=== PATIENT | female | born 1995 | race Caucasian/White ===

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

== ENCOUNTER 2017-05-31 09:21 | Emergency (ER) | payer BC ==
[2017-05-31 10:09] VITALS: BP 127/75
--- NOTE | 2017-05-31 10:32 | UC ---
Skin Complaint HPI - HPI Summary HPI Summary: boil left thigh x 3 days + redness, swollen, tender, no discharge hx of MRSA no fever, no chills - History of Current Complaint Chief Complaint: UCSkin Time Seen by Provider: 05/31/17 10:25 Stated Complaint: YAMILET KENNY NDS REFILL (NOT SEEN HERE) Hx Obtained From: Patient Hx Last Menstrual Period: 09/10/16 Onset/Duration: Gradual Onset, Lasting Days - 3, Still Present Timing: Constant Onset Severity: Moderate Current Severity: Moderate Pain Intensity: 2 Location: Other - left thigh Character: Swelling, Pain, Redness, Raised, Painful Aggravating Factor(s): Touch Alleviating Factor(s): Nothing Associated Signs & Symptoms: Positive: Tenderness. Negative: Nausea, Vomiting, Numbness, Thirst, Diaphoresis, Weakness, Pallor, Shivering - Allergy/Home Medications Allergies/Adverse Reactions: Allergies Allergy/AdvReac Type Severity Reaction Status Date / Time MS Bacitracin Allergy Intermediate Unknown Verified 05/31/17 10:07 [From Neosporin] Reaction Details MS Neomycin [From Neosporin] Allergy Intermediate Unknown Verified 05/31/17 10: 07 Reaction Details MS Polymyxin B Allergy Intermediate Unknown Verified 05/31/17 10:07 [From Neosporin] Reaction Details Review of Systems Constitutional: Negative Eyes: Negative ENT: Negative Respiratory: Negative Cardiovascular: Negative Is Patient Immunocompromised?: No All Other Systems Reviewed And Are Negative: Yes PMH/Surg Hx/FS Hx/Imm Hx - Additional Past Medical History Additional PMH: hx of MRSA - Surgical History Surgical History: None - Family History Known Family History: Positive: None Negative: Diabetes - Social History Alcohol Use: Occasionally Substance Use Type: None Smoking Status (MU): Never Smoked Tobacco - Immunization History Vaccination Up to Date: Yes Physical Exam Triage Information Reviewed: Yes Appearance: Well-Appearing, No Pain Distress, Well-Nourished Vital Signs: Initial Vital Signs Temp 98.2 F 05/31/17 10:03 Pulse 83 05/31/17 10:03 Resp 14 05/31/17 10:03 BP 127/75 05/31/17 10:03 Pulse Ox 100 05/31/17 10:03 Vital Signs Reviewed: Yes Eye Exam: Normal Eyes: Positive: Conjunctiva Clear ENT: Positive: Normal ENT inspection, Hearing grossly normal, Pharynx normal Neck: Positive: Supple, Nontender, No Lymphadenopathy Respiratory: Positive: Chest non-tender, Lungs clear, Normal breath sounds Cardiovascular: Positive: RRR, No Murmur, Pulses Normal Skin: Positive: Other - abscess left upper thigh , + erythema, tenderness, no dicharge Course/Dx - Diagnoses Provider Diagnoses: abscess right thigh Discharge - Discharge Plan Condition: Stable Disposition: HOME Prescriptions: Sulfamethox/Trimethoprim DS* [Bactrim DS 800/160 TAB*] 1 tab PO BID #20 tab Patient Education Materials: Abscess (ED) Referrals: Neftali HUBBARD,Wilber Cifuentes [Primary Care Provider] - 7 Days
== END 2017-05-31 10:37 | disposition home or self-care (01) ==
LOC: UCCORT 09:21
DX: L02.415 Cutaneous abscess of right lower limb (principal); Z86.14 Personal history of Methicillin resistant Staphylococcus aureus infection
CPT/HCPCS: 99212; G0463

== ENCOUNTER 2017-07-13 12:10 | Emergency (ER) | payer BC ==
[2017-07-13 12:36] VITALS: BP 144/79
--- NOTE | 2017-07-13 13:12 | UC ---
Skin Complaint HPI - HPI Summary HPI Summary: states that she saw a lesion on left chin about 3 days ago and popped it. It became painful and indurated. 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 Denies fever, discharge from skin lesion, neck or mouth pain - History of Current Complaint Chief Complaint: UCSkin Time Seen by Provider: 07/13/17 13:06 Stated Complaint: SWOLLEN AREA ON CHIN Hx Obtained From: Patient, Family/Bag Shaker Hx Last Menstrual Period: now ?: No Onset/Duration: Sudden Onset, Lasting Days Skin Exposure Onset/Duration: Days Ago Timing: Constant Onset Severity: Mild Current Severity: Moderate Pain Intensity: 4 Aggravating Factor(s): Touch Alleviating Factor(s): Nothing Related History: Trauma - Allergy/Home Medications Allergies/Adverse Reactions: Allergies Allergy/AdvReac Type Severity Reaction Status Date / Time bacitracin Allergy Unknown Verified 07/13/17 12:36 [From Neosporin Reaction ([id number])] Details neomycin Allergy Unknown Verified 07/13/17 12:36 [From Neosporin Reaction ([id number])] Details polymyxin B Allergy Unknown Verified 07/13/17 12:36 [From Neosporin Reaction ([id number])] Details Review of Systems Constitutional: Negative Skin: Rash All Other Systems Reviewed And Are Negative: Yes PMH/Surg Hx/FS Hx/Imm Hx Previously Healthy: Yes - Surgical History Surgical History: None - Family History Known Family History: Positive: None Negative: Diabetes - Social History Alcohol Use: Occasionally Substance Use Type: None Smoking Status (MU): Never Smoked Tobacco - Immunization History Vaccination Up to Date: Yes Physical Exam Triage Information Reviewed: Yes Appearance: Well-Appearing, No Pain Distress, Obese Vital Signs: Initial Vital Signs Temp 98.5 F 07/13/17 12:34 Pulse 75 07/13/17 12:34 Resp 18 07/13/17 12:34 BP 144/79 07/13/17 12:34 Pulse Ox 100 07/13/17 12:34 Vital Signs Reviewed: Yes Eyes: Positive: Conjunctiva Clear ENT: Positive: Normal ENT inspection Respiratory Exam: Normal Cardiovascular Exam: Normal Skin Exam: Other - papule with surrounding soft tissue induration and erythema on chin inferior to left mouth commisure Course/Dx - Diagnoses Provider Diagnoses: cellulitis Discharge - Sign-Out/Discharge Documenting (check all that apply): Discharge - Discharge Plan Condition: Stable Disposition: HOME Prescriptions: Chlorhexidine Gluconate [Hibiclens] 236 ml TP DAILY #1 liquid Mupirocin 2% OINT* [Bactroban 2 % Oint*] 1 applic TOPICAL BID #1 tube Sulfamethox/Trimethoprim DS* [Bactrim DS 800/160 TAB*] 1 tab PO BID 7 Days #14 tab Patient Education Materials: Cellulitis (DC) Referrals: Neftali HUBBARD,Wilber Cifuentes [Primary Care Provider] - - Billing Disposition and Condition Condition: STABLE Disposition: HOME
== END 2017-07-13 13:21 | disposition home or self-care (01) ==
LOC: UCEAST 12:10
DX: L03.211 Cellulitis of face (principal); Z86.14 Personal history of Methicillin resistant Staphylococcus aureus infection; Z88.3 Allergy status to other anti-infective agents
CPT/HCPCS: 99212; G0463